=== PATIENT | female | born 1940 | race Caucasian/White ===

== ENCOUNTER 2022-05-08 21:49 | Inpatient (IN) | payer MEDICARE, OTHER ==
[~2022-05-08] VITALS: Ht 157.5 cm; Wt 82.6 kg
[2022-05-08 21:00] VITALS: BP 164/78
[2022-05-08] MEDS ORDERED: ESCI20TA PO (23:38)
[2022-05-08] MEDS ORDERED: EZET10TA15 PO (23:41)
[2022-05-08] MEDS ORDERED: BIMA2.5D5 EACHEYE (23:42)
[2022-05-08] MEDS ORDERED: ESOM40CA PO (23:43)
[2022-05-08] MEDS ORDERED: METO25TA6 PO (23:43)
[2022-05-08] MEDS ORDERED: DONE5TAB34 PO (23:44)
[2022-05-08] MEDS ORDERED: MELO-107 PO (23:45)
[2022-05-08] MEDS ORDERED: AMLO-212 PO (23:46)
[2022-05-08] MEDS ORDERED: BENA20TA9 PO (23:47)
[2022-05-08] MEDS ORDERED: SIMV-46 PO (23:47)
[2022-05-08] MEDS ORDERED: ERGO500040 PO ×2 (23:50→23:51)
[2022-05-09 04:00] VITALS: BP 128/56
--- NOTE | 2022-05-09 07:30 | NUR ---
REPORT GIVEN TO LANRE CHASE
[2022-05-09 08:00] VITALS: BP 131/60
[2022-05-09] MEDS: HYDROCODONE/APAP 10-325 MG TABLET PO PRN ×3 (09:38→21:08)
[2022-05-09 12:02] VITALS: BP 133/49
[2022-05-09] MEDS ORDERED: MAGNESIUM HYDROXIDE 30 ML LIQUID UDC PO PRN (14:45)
[2022-05-09] MEDS: SENNOSIDES 1 TABLET PO SCH ×2 (15:26→21:09)
[2022-05-09 16:21] VITALS: BP 115/65
[2022-05-09] MEDS: METOPROLOL TARTRATE 25 MG TABLET PO SCH (17:00)
[2022-05-09] MEDS: SIMVASTATIN 20 MG TABLET PO SCH (17:51)
[2022-05-09] MEDS ORDERED: BIMATOPROST 0.01% OPHT DROP 2.5 ML BOTTLE EACHEYE SCH (18:00)
[2022-05-09 20:00] VITALS: BP 121/55
[2022-05-09] MEDS: LATANOPROST OPHT DROP 2.5 ML BOTTLE OP SCH (21:00)
[2022-05-09] MEDS: DOCUSATE SODIUM 100 MG CAPSULE PO SCH (21:09)
[2022-05-10] VITALS: BP 119/67
[2022-05-10 04:00] VITALS: BP 122/66
[2022-05-10 05:43] LABS: HEMATOCRIT 34.7 % (31.2-41.9); MEAN CORPUSCULAR HEMOGLOBIN 27.7 uug (24.7-32.8); MEAN CORPUSCULAR VOLUME 83.4 fL (75.5-95.3); PLATELET COUNT (AUTO) 259 K/uL (179-408)
[2022-05-10 05:57] LABS: CREATININE 0.7 mg/dL (0.6-1.3); MAGNESIUM 2.1 mg/dL (1.8-2.4); PHOSPHOROUS 3.5 mg/dL (2.5-4.9); POTASSIUM 4.1 mmol/L (3.5-5.1)
[2022-05-10] MEDS: PANTOPRAZOLE SODIUM 40 MG TABLET.DR PO SCH (06:12)
--- NOTE | 2022-05-10 07:14 | NUR ---
Patient is AAOX4 , she came on the unit after having a hip fracture surgery. Dressing has been changed, no sign of respiratory observed, pain medication have been administered per patient request. Patient is stable we will continue to monitor patient for safety.
--- NOTE | 2022-05-10 07:14 | NUR ---
Patient is AAOX$
[2022-05-10 08:00] VITALS: BP 143/72
[2022-05-10] MEDS: DOCUSATE SODIUM 100 MG CAPSULE PO SCH ×2 (08:51→20:13)
[2022-05-10] MEDS: MELOXICAM 7.5 MG TABLET PO SCH (08:51)
[2022-05-10] MEDS: ESCITALOPRAM OXALATE 10 MG TABLET PO SCH (08:51)
[2022-05-10] MEDS: HYDROCODONE/APAP 10-325 MG TABLET PO PRN ×2 (08:52→18:45)
[2022-05-10] MEDS: DONEPEZIL 5 MG TABLET PO SCH (08:52)
[2022-05-10] MEDS: EZETIMIBE 10 MG TABLET PO SCH (08:52)
[2022-05-10] MEDS: METOPROLOL TARTRATE 25 MG TABLET PO SCH ×2 (08:53→17:07)
[2022-05-10] MEDS: AMLODIPINE 5 MG TABLET PO SCH (08:53)
[2022-05-10] MEDS: BENAZEPRIL HCL 20 MG TABLET PO SCH (08:53)
[2022-05-10] MEDS ORDERED: ESOMEPRAZOLE MAG TRIHYDRATE PO SCH (09:00)
[2022-05-10] MEDS ORDERED: Medication Not On Formulary EA (Escitalopram Oxalate (Lexapro) 1 TAB) PO SCH (09:00)
[2022-05-10] MEDS: MIRALAX 17 GM POWD.PACK PO SCH (13:05)
--- NOTE | 2022-05-10 13:05 | NUR ---
PATIENT C/O CONSTIPATED AND HAS NOT MOVED HER BOWELS FOR A FEW DAYS DR VILLA NOTIFIED WITH NEW ORDERS AND NOTED.PATIENT IS ALSO ON [place] AND [facility] ROUTINELY.
[2022-05-10] MEDS: ONDANSETRON ODT 4 MG TAB.RAPDIS SL PRN (14:20)
--- NOTE | 2022-05-10 14:20 | NUR ---
PATIENT C/O FEELS NAUSEOUS HAS NO ORDER FOR ZOFRAN DR VILLA NOTIFIED WITH ORDER TO START ZOFRA ODT NEEDED GIVEN AND HELPFUL
[2022-05-10] MEDS: SIMVASTATIN 20 MG TABLET PO SCH (17:06)
[2022-05-10 18:00] VITALS: BP 127/52
--- NOTE | 2022-05-10 18:47 | NUR ---
MEDICATED FOR C/O PAIN AND DISCOMFORTS X2 THIS SHIFT ORDERED AND HELPFUL MADE COMFORTABLE WILL CONTINUE TO OBSERVE.
[2022-05-10] MEDS: LATANOPROST OPHT DROP 2.5 ML BOTTLE OP SCH (20:13)
[2022-05-10] MEDS: SENNOSIDES 1 TABLET PO SCH (20:13)
[2022-05-10 20:23] VITALS: BP 125/59
[2022-05-11 05:19] VITALS: BP 107/54
[2022-05-11] MEDS: PANTOPRAZOLE SODIUM 40 MG TABLET.DR PO SCH (06:22)
[2022-05-11 07:44] VITALS: BP 128/52
[2022-05-11] MEDS: DOCUSATE SODIUM 100 MG CAPSULE PO SCH ×2 (08:35→20:22)
[2022-05-11] MEDS: DONEPEZIL 5 MG TABLET PO SCH (08:35)
[2022-05-11] MEDS: HYDROCODONE/APAP 10-325 MG TABLET PO PRN (08:35)
[2022-05-11] MEDS: ESCITALOPRAM OXALATE 10 MG TABLET PO SCH (08:35)
[2022-05-11] MEDS: METOPROLOL TARTRATE 25 MG TABLET PO SCH ×2 (08:35→17:35)
[2022-05-11] MEDS: MELOXICAM 7.5 MG TABLET PO SCH (08:36)
[2022-05-11] MEDS: EZETIMIBE 10 MG TABLET PO SCH (08:36)
[2022-05-11] MEDS: MIRALAX 17 GM POWD.PACK PO SCH (08:36)
[2022-05-11] MEDS: BENAZEPRIL HCL 20 MG TABLET PO SCH (08:37)
[2022-05-11] MEDS: AMLODIPINE 5 MG TABLET PO SCH (09:53)
--- NOTE | 2022-05-11 11:01 | NUR ---
INDIVIDUALIZED PLAN OF CARE
[2022-05-11] MEDS ORDERED: FLEET ENEMA 133 ML BOTTLE RC PRN (13:15)
--- NOTE | 2022-05-11 13:29 | NUR ---
0730-REC'D PATIENT IN BED, AWAKE, ALERT/ORIENTED. FARSI SPEAKING, PATIENT ABLE TO VERBALIZE HER NEEDS VIA A HOME APPLIANCE TECHNICIAN, PATIENT DENIES PAIN AT THIS TIME. OXYGEN VIA NC 2LPM, NO RESPIRATORY OR PHYSICAL DISTRESS NOTED. ORAL FLUIDS TAKEN WELL. RT HIP ORIF WITH CLEAN DD IN PLACE. NO S/S OF BLEEDING. CALL LIGHT AT REACH, ENCOURAGED TO PLEASE USE IT EVERY TIME HELP IS NEEDED WITH GOOD UNDERSTANDING. 0840-MEDICATED PRN WITH NORCO BASED ON HER PAIN LEVEL NEEDS/ ORDERED BY MD AND EFFECTIVE. OTHER SCHEDULED/DUE MEDICATION 100MG AND MIRALAX 17GM ALONG WITH OTHER AM MEDICATION ADMINISTERED ORDERED WITH NO ASE NOTED; VS STABLE, ORAL FLUIDS TAKEN WELL. 1300-PATIENT C/O OF UNABLE TO REMOVE HER BOWELS FOR SEVERAL DAYS AND HAVING A DIFFICULT TIME. OBTAINED ORDERS FROM Dr DAISY Mckeon FOR A FLEET ENEMA PRN AND ADMINISTERED, PROCEDURE EXPLAINED PRIOR, PRIVACY PROVIDED; PATIENT TOLERATED WELL WITH NO C/O DISCOMFORT/PAIN. 1330-PATIENT WITH LARGE BM AT THIS TIME, CARE PROVIDED AND REPOSITIONED FOR COMFORT.
[2022-05-11 15:46] VITALS: BP 116/44
[2022-05-11] MEDS: SIMVASTATIN 20 MG TABLET PO SCH (17:35)
--- NOTE | 2022-05-11 19:02 | NUR ---
Patient compliant with care/treatment, cooperative with nursing staff, eating and drinking well. Dressing to RT hip surgical site done as ordered. No SS of bleeding or infection noted. All safety precautions observed. Needs anticipated and met. Patient denies pain. Fleet enema administered as ordered with x2 large BM soft formed obtained at this time. Endorsed to incoming relieving RN appropriately.
[2022-05-11 20:00] VITALS: BP 120/47
[2022-05-11] MEDS: SENNOSIDES 1 TABLET PO SCH (20:22)
[2022-05-11] MEDS: LATANOPROST OPHT DROP 2.5 ML BOTTLE OP SCH (20:24)
[2022-05-12 04:36] VITALS: BP 113/52
[2022-05-12] MEDS: PANTOPRAZOLE SODIUM 40 MG TABLET.DR PO SCH (06:05)
--- NOTE | 2022-05-12 07:25 | NUR ---
Upon shift exchange rounds rec'd patient in bed, no respiratory distress noted, denies pain at this time. Offered oral fluids and taken well. Repositioned for comfort, safety measures in place, reminded and encouraged to use call light for help every time needed.
[2022-05-12 07:44] VITALS: BP 137/60
[2022-05-12] MEDS: HYDROCODONE/APAP 10-325 MG TABLET PO PRN ×2 (08:49→16:40)
[2022-05-12] MEDS: DOCUSATE SODIUM 100 MG CAPSULE PO SCH ×2 (08:49→21:12)
[2022-05-12] MEDS: ESCITALOPRAM OXALATE 10 MG TABLET PO SCH (08:49)
[2022-05-12] MEDS: EZETIMIBE 10 MG TABLET PO SCH (08:49)
[2022-05-12] MEDS: BENAZEPRIL HCL 20 MG TABLET PO SCH (08:50)
[2022-05-12] MEDS: DONEPEZIL 5 MG TABLET PO SCH (08:50)
[2022-05-12] MEDS: AMLODIPINE 5 MG TABLET PO SCH (08:50)
[2022-05-12] MEDS: MIRALAX 17 GM POWD.PACK PO SCH (08:51)
[2022-05-12] MEDS: METOPROLOL TARTRATE 25 MG TABLET PO SCH ×2 (08:51→16:41)
[2022-05-12 16:00] VITALS: BP 106/42
[2022-05-12] MEDS: SIMVASTATIN 20 MG TABLET PO SCH (17:02)
[2022-05-12] MEDS: GLUCERNA SHAKE 237 ML CAN PO SCH (17:02)
[2022-05-12 20:50] VITALS: BP 123/46
[2022-05-12] MEDS: SENNOSIDES 1 TABLET PO SCH (21:13)
[2022-05-12] MEDS: LATANOPROST OPHT DROP 2.5 ML BOTTLE OP SCH (21:13)
[2022-05-13 04:05] VITALS: BP 121/49
--- NOTE | 2022-05-13 05:53 | NUR ---
AAOx 3-4 forgetful at times. No acute distress noted. Right hip dressing clean and dry, trell in place. Medicated for pain as needed. Fall precautions maintained. Siderails up for safety. Will monitor patient. All due meds given without difficulty.
[2022-05-13] MEDS: PANTOPRAZOLE SODIUM 40 MG TABLET.DR PO SCH (06:11)
[2022-05-13 07:15] LABS: THYROID STIMULATING HORMONE 2.267 mIU/mL (0.358-3.740)
[2022-05-13 07:25] LABS: HEMATOCRIT 32.3 % (31.2-41.9); MEAN CORPUSCULAR HEMOGLOBIN 27.9 uug (24.7-32.8); MEAN CORPUSCULAR VOLUME 83.4 fL (75.5-95.3); PLATELET COUNT (AUTO) 294 K/uL (179-408)
[2022-05-13 07:39] LABS: BILIRUBIN,TOTAL 0.6 mg/dL (0.2-1.0); CREATININE 0.8 mg/dL (0.6-1.3); MAGNESIUM 1.9 mg/dL (1.8-2.4); PHOSPHOROUS 2.9 mg/dL (2.5-4.9); POTASSIUM 3.9 mmol/L (3.5-5.1); TOTAL PROTEIN, SERUM 6.6 g/dL (6.4-8.2)
[2022-05-13 08:00] VITALS: BP 123/49
[2022-05-13] MEDS: GLUCERNA SHAKE 237 ML CAN PO SCH ×3 (08:31→17:46)
[2022-05-13] MEDS: ESCITALOPRAM OXALATE 10 MG TABLET PO SCH (08:47)
[2022-05-13] MEDS: DOCUSATE SODIUM 100 MG CAPSULE PO SCH ×2 (08:48→21:12)
[2022-05-13] MEDS: DONEPEZIL 5 MG TABLET PO SCH (08:49)
[2022-05-13] MEDS: HYDROCODONE/APAP 10-325 MG TABLET PO PRN ×2 (08:51→23:43)
--- NOTE | 2022-05-13 09:00 | NUR ---
Received report from night cleaner. Pt is Farsi speaking only. Assisted to the commode for BM. Unable to collect urine for analysis at this time due to BM. Kimberlee CASPER, aware that urine needs to be collected.
[2022-05-13] MEDS: AMLODIPINE 5 MG TABLET PO SCH (09:01)
[2022-05-13] MEDS: MIRALAX 17 GM POWD.PACK PO SCH (09:02)
[2022-05-13] MEDS: BENAZEPRIL HCL 20 MG TABLET PO SCH (09:03)
--- NOTE | 2022-05-13 11:29 | NUR ---
INTERDISCIPLINARY TEAM CONFERENCE
[2022-05-13] MEDS: METOPROLOL TARTRATE 25 MG TABLET PO SCH (11:31)
[2022-05-13] MEDS: NUTRISOURCE FIBER 4 GM PACKET PO SCH (12:00)
--- NOTE | 2022-05-13 12:33 | NUR ---
Report given to LANRE Zuniga. Pt in bed, on bedpan. No s/s of pain noted. Bed in lowest position, bed alarm on, call light within reach.
[2022-05-13 15:04] LABS: *BILIRUBIN,URIN NEGATIVE (NEGATIVE); *BLOOD, URINE TRACE (NEGATIVE); *CLARITY,URINE CLEAR (CLEAR); *COLOR,URINE YELLOW (YELLOW); *KETONES,URINE NEGATIVE (NEGATIVE); LEUKOCYTE ESTERASE ,URINE 1+ (NEGATIVE); NITRITE, URINE NEGATIVE (NEGATIVE); PH,URINE 5.5 (5.0-8.0); UGLUCOSE NEGATIVE (NEGATIVE)
[2022-05-13 15:27] LABS: BACTERIA,URINE FEW /HPF (NONE SEEN); SQUAMOUS EPITHELIAL CELL,UR MODERATE /HPF (NONE SEEN)
[2022-05-13 16:27] VITALS: BP 104/50
[2022-05-13 20:42] VITALS: BP 120/57
[2022-05-13] MEDS: SENNOSIDES 1 TABLET PO SCH (21:13)
[2022-05-13] MEDS: LATANOPROST OPHT DROP 2.5 ML BOTTLE OP SCH (21:14)
[2022-05-13] MEDS: CEphaleXIN 500 MG CAPSULE PO SCH (22:31)
[2022-05-14 04:00] VITALS: BP 141/57
[2022-05-14] MEDS: CEphaleXIN 500 MG CAPSULE PO SCH ×3 (06:03→21:33)
[2022-05-14] MEDS: PANTOPRAZOLE SODIUM 40 MG TABLET.DR PO SCH (06:04)
[2022-05-14] MEDS: DOCUSATE SODIUM 100 MG CAPSULE PO SCH ×2 (08:16→21:29)
[2022-05-14] MEDS: METOPROLOL TARTRATE 25 MG TABLET PO SCH ×2 (08:16→17:33)
[2022-05-14] MEDS: ESCITALOPRAM OXALATE 10 MG TABLET PO SCH (08:17)
[2022-05-14] MEDS: GLUCERNA SHAKE 237 ML CAN PO SCH ×3 (08:17→17:34)
[2022-05-14] MEDS: DONEPEZIL 5 MG TABLET PO SCH (08:17)
[2022-05-14] MEDS: AMLODIPINE 5 MG TABLET PO SCH (08:18)
[2022-05-14] MEDS: MIRALAX 17 GM POWD.PACK PO SCH (08:18)
[2022-05-14] MEDS: BENAZEPRIL HCL 20 MG TABLET PO SCH (08:18)
[2022-05-14] MEDS: NUTRISOURCE FIBER 4 GM PACKET PO SCH (08:19)
[2022-05-14] MEDS: HYDROCODONE/APAP 10-325 MG TABLET PO PRN ×2 (08:59→21:29)
[2022-05-14 12:56] VITALS: BP 124/60
[2022-05-14] MEDS: ONDANSETRON ODT 4 MG TAB.RAPDIS SL PRN (13:34)
[2022-05-14 16:00] VITALS: BP 112/47
[2022-05-14] MEDS: LATANOPROST OPHT DROP 2.5 ML BOTTLE OP SCH (21:28)
[2022-05-14] MEDS: SENNOSIDES 1 TABLET PO SCH (21:29)
[2022-05-15] MEDS: CEphaleXIN 500 MG CAPSULE PO SCH ×3 (05:25→21:19)
[2022-05-15] MEDS: PANTOPRAZOLE SODIUM 40 MG TABLET.DR PO SCH (06:25)
[2022-05-15 07:36] VITALS: BP 129/56
[2022-05-15] MEDS: GLUCERNA SHAKE 237 ML CAN PO SCH ×3 (08:17→16:18)
[2022-05-15] MEDS: HYDROCODONE/APAP 5-325MG TABLET PO SCH ×2 (08:18→09:56)
[2022-05-15] MEDS: DONEPEZIL 5 MG TABLET PO SCH (08:19)
[2022-05-15] MEDS: DOCUSATE SODIUM 100 MG CAPSULE PO SCH ×2 (08:19→20:48)
[2022-05-15] MEDS: ESCITALOPRAM OXALATE 10 MG TABLET PO SCH (08:20)
[2022-05-15] MEDS: BENAZEPRIL HCL 20 MG TABLET PO SCH (08:21)
[2022-05-15] MEDS: METOPROLOL TARTRATE 25 MG TABLET PO SCH ×2 (08:21→16:19)
[2022-05-15] MEDS: MIRALAX 17 GM POWD.PACK PO SCH (08:21)
[2022-05-15] MEDS: AMLODIPINE 5 MG TABLET PO SCH (08:21)
[2022-05-15] MEDS: NUTRISOURCE FIBER 4 GM PACKET PO SCH (09:02)
--- NOTE | 2022-05-15 11:17 | NUR ---
Reassessment for norco was done at 0930.
[2022-05-15] MEDS: HYDROCODONE/APAP 10-325 MG TABLET PO PRN (16:23)
[2022-05-15] MEDS: LATANOPROST OPHT DROP 2.5 ML BOTTLE OP SCH (20:48)
[2022-05-15] MEDS: SENNOSIDES 1 TABLET PO SCH (20:48)
--- NOTE | 2022-05-15 22:00 | NUR ---
1920- The patient is aox2 and has no complains of distress. The patient is on 2 liters nasala cannula. The patient has no IV access. The patient has trell on her right side hip that are intact, dry and open to air. The patient has no complains of pain. Call light within reach, bed at lowest position, bed alarm on, wheels are lock. Will continue to monitor throughout the shift. 2200- The patient request for an extra blanket. Item is given to the patient. The patient has no complains of pain or signs of distress. Will continue to monitor throughout the shift. 0100- The patient is asleep and resting comfortably. The patient has no complains of pain. Will continue to monitor throughout the shift.
--- NOTE | 2022-05-16 01:27 | NUR ---
Patient remains clinically stable - no concerns expressed, will continue to assess, plan, and implement care accordingly.
[2022-05-16 04:23] VITALS: BP 114/68
[2022-05-16] MEDS: CEphaleXIN 500 MG CAPSULE PO SCH ×4 (05:57→22:00)
[2022-05-16] MEDS: PANTOPRAZOLE SODIUM 40 MG TABLET.DR PO SCH (06:01)
[2022-05-16 07:48] VITALS: BP 142/49
[2022-05-16] MEDS: GLUCERNA SHAKE 237 ML CAN PO SCH ×3 (08:11→17:16)
[2022-05-16] MEDS: DOCUSATE SODIUM 100 MG CAPSULE PO SCH ×3 (08:36→21:51)
[2022-05-16] MEDS: DONEPEZIL 5 MG TABLET PO SCH (08:36)
[2022-05-16] MEDS: MIRALAX 17 GM POWD.PACK PO SCH (08:37)
[2022-05-16] MEDS: HYDROCODONE/APAP 5-325MG TABLET PO SCH (08:37)
[2022-05-16] MEDS: ESCITALOPRAM OXALATE 10 MG TABLET PO SCH (08:37)
[2022-05-16] MEDS: METOPROLOL TARTRATE 25 MG TABLET PO SCH ×2 (08:38→17:00)
[2022-05-16] MEDS: BENAZEPRIL HCL 20 MG TABLET PO SCH (08:38)
[2022-05-16] MEDS: AMLODIPINE 5 MG TABLET PO SCH (08:38)
[2022-05-16] MEDS: NUTRISOURCE FIBER 4 GM PACKET PO SCH (08:39)
[2022-05-16 16:45] VITALS: BP 128/41
--- NOTE | 2022-05-16 17:16 | NUR ---
RN HELD B/P MEDICATIONS HR 55, B/P 123/52.
--- NOTE | 2022-05-16 19:29 | NUR ---
RECEIVED REPORT FROM JANN HALL SHIFT RN, & JANN FUCHS SHIFT RN. PATIENT IS ALERT AND ORIENTED X3 AND SPEAKS TAJIK, WITH LIMITED KINYARWANDA. PATIENT ABLE TO TOLERATE PO MEDICATIONS AND DIET, EATING MAINLY FOOD BROUGHT FROM HOME. PATIENT VOIDS ADEQUATELY USING DIAPER & COMMODE. PATIENT PARTICIPATES WITH PHYSICAL THERAPY PER SCHEDULE. PATIENT HAD SOME PAIN NOTED, BUT SCHEDULED NORCO WAS ABLE TO REDUCE PAIN LEVEL. NO ACUTE DISTRESS NOTED. FALL PRECAUTION IN PLACE, INCLUDING BED IN LOW POSITION & BED ALARM ON. HOURLY ROUNDING COMPLETED. ENDORSED CARE TO LANRE WARD, FOR CONTINUATION OF CARE.
--- NOTE | 2022-05-16 19:30 | NUR ---
NIGHT NURSE REPORT RECEIVED FOLLOWS: - son in the room with patient at the time of this report: 1) BREATHING: (a) Patient received, AO x 3-4 no sign of distress, SOB, or hypoxia observed. (b) Patient awake watching tv, lying comfortably in bed. 2) PAIN: Prescribed: [place] 10/325 Q6 for pain 2) SAFETY: - (a) Bed alarm activated, surrounding areas free of clutter. (c) No clutter around the bed area -to reduce risk of fall. 3) INFECTION CONTROL: Patient no iv accesses. 4) COMMUNICATION:- Speaks doesn't speak Norwegian - however, using sign language a little Norwegian to express own needs. 5) TOILETING: Uses commode with assist of one. 6) HYGIENE: Patient needs assistance with meeting hygiene needs. 8) FEEDING/NUTRITION: Needs maximum assistance with ADLs due to recent hip surgery. 9) MOBILITY: Limited mobility due to condition - ORIF. 10) DRESSING:Patient needs assistance with dressing - patient in hospital gown - clean and dry. 11) COMFORT: Patient lying in bed watching TV and seem comfortable. 12) SKIN/RESTRAINTS: Skin intact - no restraints. PLAN: (a) Maintain safety - patient at risk of falls - bed alarm activated. (b) Will continue monitoring and assisting patient accordingly with ADLs. (c) Continue with rehab PT/OT for ADL (d) Management of surgical wound (e) DVT prophylaxis (f) Discontinued Meloxican because of possible bone healing delays.
[2022-05-16 20:52] VITALS: BP 137/65
--- NOTE | 2022-05-16 21:25 | NUR ---
Night medication administered as prescribed, however, refused ATB.
[2022-05-16] MEDS: SENNOSIDES 1 TABLET PO SCH (21:51)
[2022-05-16] MEDS: ACIDOPHILUS/BULGARICUS CHEW TAB PO SCH (21:52)
[2022-05-16] MEDS: LATANOPROST OPHT DROP 2.5 ML BOTTLE OP SCH (21:55)
--- NOTE | 2022-05-16 23:26 | NUR ---
Checked on patient - watching TV and remain clinically stable, no sign of SOB, pain, or distress observed.
--- NOTE | 2022-05-17 01:28 | NUR ---
Patient remains clinically stable - no concerns expressed, will continue to assess, plan, and implement care accordingly.
--- NOTE | 2022-05-17 03:29 | NUR ---
Patient requested water - and bathroom assistance, a request that was granted. Patient went back to sleep, with no concerns.
[2022-05-17 04:12] VITALS: BP 126/51
--- NOTE | 2022-05-17 05:25 | NUR ---
Checked patient - no change in condition at the time of this report.
[2022-05-17] MEDS: PANTOPRAZOLE SODIUM 40 MG TABLET.DR PO SCH (05:47)
[2022-05-17] MEDS: CEphaleXIN 500 MG CAPSULE PO SCH ×2 (05:48→13:59)
--- NOTE | 2022-05-17 06:36 | NUR ---
1) Washed - bed bath, bed linen and gown changed. 2) Morning med administered as prescribed, however, she refused oral ATB, because they are too big. 3) She seem to generally not like taking meds. Therefore, unable to administer Zofran as its oral and she is a rehab patient with no iv access. 4) No complaints for the rest of the shift, remained in bed at the time of this report. 5) Patient less confused during the night compared to the previous two nights. 6) Will endorse care to day staff, who will continue to assess, plan, implement and evaluate care accordingly.
[2022-05-17 07:52] VITALS: BP 125/48
[2022-05-17] MEDS: HYDROCODONE/APAP 5-325MG TABLET PO SCH (08:32)
[2022-05-17] MEDS: ACIDOPHILUS/BULGARICUS CHEW TAB PO SCH ×2 (08:32→20:52)
[2022-05-17] MEDS: DONEPEZIL 5 MG TABLET PO SCH (08:32)
[2022-05-17] MEDS: METOPROLOL TARTRATE 25 MG TABLET PO SCH ×2 (08:32→16:34)
[2022-05-17] MEDS: ESCITALOPRAM OXALATE 10 MG TABLET PO SCH (08:32)
[2022-05-17] MEDS: FERROUS SULFATE 325 MG TABEC PO SCH (08:32)
[2022-05-17] MEDS: AMLODIPINE 5 MG TABLET PO SCH (08:32)
[2022-05-17] MEDS: BENAZEPRIL HCL 20 MG TABLET PO SCH (08:32)
[2022-05-17] MEDS: NUTRISOURCE FIBER 4 GM PACKET PO SCH ×2 (08:33→16:34)
[2022-05-17] MEDS: GLUCERNA SHAKE 237 ML CAN PO SCH ×3 (08:33→16:34)
[2022-05-17] MEDS: DOCUSATE SODIUM 100 MG CAPSULE PO SCH ×3 (08:33→20:56)
[2022-05-17] MEDS: MIRALAX 17 GM POWD.PACK PO SCH (08:33)
[2022-05-17 16:42] VITALS: BP 125/46
[2022-05-17] MEDS: SENNOSIDES 1 TABLET PO SCH ×2 (20:52→20:57)
[2022-05-17] MEDS: LATANOPROST OPHT DROP 2.5 ML BOTTLE OP SCH (20:52)
--- NOTE | 2022-05-17 20:58 | NUR ---
Yudy held, family reported had loose BM x 1 today.
[2022-05-17 22:18] VITALS: BP 123/48
[2022-05-18] MEDS: CEphaleXIN 500 MG CAPSULE PO SCH ×4 (00:02→21:35)
[2022-05-18 04:20] VITALS: BP 106/55
[2022-05-18] MEDS: PANTOPRAZOLE SODIUM 40 MG TABLET.DR PO SCH (06:23)
[2022-05-18 08:22] VITALS: BP 140/52
[2022-05-18] MEDS: FERROUS SULFATE 325 MG TABEC PO SCH (08:49)
[2022-05-18] MEDS: DOCUSATE SODIUM 100 MG CAPSULE PO SCH ×2 (08:49→20:42)
[2022-05-18] MEDS: ACIDOPHILUS/BULGARICUS CHEW TAB PO SCH ×2 (08:49→20:42)
[2022-05-18] MEDS: BENAZEPRIL HCL 20 MG TABLET PO SCH (08:49)
[2022-05-18] MEDS: AMLODIPINE 5 MG TABLET PO SCH (08:49)
[2022-05-18] MEDS: MIRALAX 17 GM POWD.PACK PO SCH (08:50)
[2022-05-18] MEDS: DONEPEZIL 5 MG TABLET PO SCH (08:50)
[2022-05-18] MEDS: GLUCERNA SHAKE 237 ML CAN PO SCH ×3 (08:50→17:18)
[2022-05-18] MEDS: METOPROLOL TARTRATE 25 MG TABLET PO SCH ×2 (08:50→17:18)
[2022-05-18] MEDS: ESCITALOPRAM OXALATE 10 MG TABLET PO SCH (08:50)
[2022-05-18] MEDS: NUTRISOURCE FIBER 4 GM PACKET PO SCH ×2 (08:51→17:19)
[2022-05-18] MEDS: HYDROCODONE/APAP 10-325 MG TABLET PO PRN (14:43)
--- NOTE | 2022-05-18 16:51 | NUR ---
Patient refused her antibiotic dose, stated she does not want it, risks and benefits explained, daughter was at bedside, verbalized understanding of it, still refused. no acute distress note.
[2022-05-18 16:56] VITALS: BP 121/48
--- NOTE | 2022-05-18 18:27 | NUR ---
no new events noted during shift
[2022-05-18] MEDS: SENNOSIDES 1 TABLET PO SCH (20:43)
[2022-05-18] MEDS: LATANOPROST OPHT DROP 2.5 ML BOTTLE OP SCH (20:43)
[2022-05-18 23:10] VITALS: BP 141/56
--- NOTE | 2022-05-19 05:31 | NUR ---
no events noted during shift, alert, oriented x4, farsi speaking, kept comfortable, needs met timely.
[2022-05-19] MEDS: PANTOPRAZOLE SODIUM 40 MG TABLET.DR PO SCH (06:12)
[2022-05-19 06:13] VITALS: BP 139/55
--- NOTE | 2022-05-19 07:30 | NUR ---
Received report from LANRE RINCON. Pt stable, lying in bed awake, Farsi speaking only. No s/s of distress noted, all safety measures in place.
[2022-05-19 08:01] VITALS: BP 138/40
[2022-05-19] MEDS: GLUCERNA SHAKE 237 ML CAN PO SCH ×3 (08:33→17:59)
[2022-05-19] MEDS: ACIDOPHILUS/BULGARICUS CHEW TAB PO SCH ×2 (08:40→20:51)
[2022-05-19] MEDS: METOPROLOL TARTRATE 25 MG TABLET PO SCH ×2 (08:41→17:00)
[2022-05-19] MEDS: FERROUS SULFATE 325 MG TABEC PO SCH (08:43)
[2022-05-19] MEDS: HYDROCODONE/APAP 10-325 MG TABLET PO PRN (08:43)
[2022-05-19] MEDS: AMLODIPINE 5 MG TABLET PO SCH (08:43)
[2022-05-19] MEDS: DONEPEZIL 5 MG TABLET PO SCH (08:44)
[2022-05-19] MEDS: ESCITALOPRAM OXALATE 10 MG TABLET PO SCH (08:44)
[2022-05-19] MEDS: BENAZEPRIL HCL 20 MG TABLET PO SCH (08:44)
[2022-05-19] MEDS: NUTRISOURCE FIBER 4 GM PACKET PO SCH ×2 (08:45→17:03)
[2022-05-19] MEDS: MIRALAX 17 GM POWD.PACK PO SCH (08:45)
[2022-05-19] MEDS: DOCUSATE SODIUM 100 MG CAPSULE PO SCH ×2 (08:45→20:52)
[2022-05-19 15:50] VITALS: BP 103/55
--- NOTE | 2022-05-19 19:39 | NUR ---
Pt endorsed to LANRE Tolliver, curb machine operator nurse. Pt stable, lying in bed, no s/s of distress noted, all safety measures in place.
[2022-05-19 20:00] VITALS: BP 140/60
[2022-05-19] MEDS: SENNOSIDES 1 TABLET PO SCH (20:52)
[2022-05-19] MEDS: LATANOPROST OPHT DROP 2.5 ML BOTTLE OP SCH (20:52)
--- NOTE | 2022-05-20 04:29 | NUR ---
Awake alert and oriented x 2-3 Forgetful at times. Tolerated po meds well. All needs attended. Fall precautions maintained. Kept comfortable. Incontinent of bowel and bladder. Kept clean and dry. No BM noted this shift. VSS. Denies any pain nor any discomfort. Fall precautions maintained. Will monitor patient. Right hip trell intact and DIRECTOR TALENT MANAGEMENT.
[2022-05-20] MEDS: PANTOPRAZOLE SODIUM 40 MG TABLET.DR PO SCH (06:03)
[2022-05-20 06:39] VITALS: BP 104/56
[2022-05-20 08:09] VITALS: BP 154/52
[2022-05-20] MEDS: GLUCERNA SHAKE 237 ML CAN PO SCH ×3 (08:22→17:39)
[2022-05-20] MEDS: ESCITALOPRAM OXALATE 10 MG TABLET PO SCH (09:01)
[2022-05-20] MEDS: BENAZEPRIL HCL 20 MG TABLET PO SCH (09:01)
[2022-05-20] MEDS: ACIDOPHILUS/BULGARICUS CHEW TAB PO SCH ×2 (09:01→20:55)
[2022-05-20] MEDS: FERROUS SULFATE 325 MG TABEC PO SCH (09:01)
[2022-05-20] MEDS: DOCUSATE SODIUM 100 MG CAPSULE PO SCH ×2 (09:01→20:55)
[2022-05-20] MEDS: DONEPEZIL 5 MG TABLET PO SCH (09:01)
[2022-05-20] MEDS: METOPROLOL TARTRATE 25 MG TABLET PO SCH ×3 (09:01→17:39)
[2022-05-20] MEDS: AMLODIPINE 5 MG TABLET PO SCH (09:02)
[2022-05-20] MEDS: MIRALAX 17 GM POWD.PACK PO SCH (09:02)
[2022-05-20] MEDS: NUTRISOURCE FIBER 4 GM PACKET PO SCH ×2 (09:02→17:40)
[2022-05-20] MEDS: HYDROCODONE/APAP 10-325 MG TABLET PO PRN (09:09)
[2022-05-20 15:49] VITALS: BP 106/40
--- NOTE | 2022-05-20 15:53 | NUR ---
INTERDISCIPLINARY TEAM CONFERENCE
--- NOTE | 2022-05-20 18:59 | NUR ---
0730-REC'D PATIENT IN BED, ON R/A WITH NO APPARENT RESPIRATORY DISTRESS NOTED. PATIENT ALERT AND ORIENTED, FARSI SPEAKING. DENIES PAIN AT THIS TIMED. RT HIP S/P ORIF WITH SURGICAL SITE INTACT, NO S/S OF BLEEDING OR INFECTION NOTED. SAFETY MEASURES AND CALL LIGHT AT REACH. 0900-SCHEDULED/DUE MEDICATION ADMINISTERED WITH NO A/R NOTED, ORAL FLUIDS TAKEN WELL, PATIENT DENIES ANY DISCOMFORT. 1144AM-PATIENT IN ROOM BY REHAB STAFF, PER REHAB STAFF PATIENT DURING THERAPY PATIENT SUDDENLY GOT DIZZY AND PALE AND WAS BROUGHT BACK TO HER ROOM, ARRIVED TO ASSESS PATIENT WITH FOLLOWING VS: BP11/54, P50, OXYGEN 93% ON ROOM AIR, PATIENT STATED SHE FEELS WELL NOW, BUT SHE DID FELT DIZZY DURING THERAPY. NO OTHER C/O DISCOMFORT AT THIS TIME. 1244-VSS AND FOLLOWS: BP120/56, P62, T97.5, R20, OXYGEN 95% ON R/A, PATIENT DENIES ANY DISCOMFORT. MEDICATED PATIENT PRN FOR PAIN DURING SHIFT ORDERED BY MD AND EFFECTIVE. ASSIST WITH ADLS THROUGH OUT THE DAY. INCONTINENT AND REQUIRES OF ONE PERSON ASSIST WITH PERSONAL CARE/HYGIENE, CARE PROVIDED AT ROUTINE INTERVALS AND NEEDED. NEEDS ANTICIPATED AND MET. ROUTINE ROUNDS AND FREQUENT VISUAL CHECKS DONE DURING SHIFT AND CALL LIGHTS ANSWERED PROMPTLY. SCHEDULED AND PRN MEDICATIONS ADMINISTERED ORDERED AND NEEDED BY PATIENT.
[2022-05-20 20:00] VITALS: BP 123/52
[2022-05-20] MEDS: LATANOPROST OPHT DROP 2.5 ML BOTTLE OP SCH (20:55)
[2022-05-20] MEDS: SENNOSIDES 1 TABLET PO SCH (20:56)
[2022-05-21 04:11] VITALS: BP 120/58
--- NOTE | 2022-05-21 04:56 | NUR ---
Quiet night. All needs attended. VSS. No acute distress noted. Will monitor patient. Incontinent of urine x2. Kept clean and dry. No complaints presented during shift. Slept well.
[2022-05-21] MEDS: PANTOPRAZOLE SODIUM 40 MG TABLET.DR PO SCH (06:10)
[2022-05-21 07:47] VITALS: BP 118/74
[2022-05-21] MEDS: GLUCERNA SHAKE 237 ML CAN PO SCH ×3 (09:18→16:44)
[2022-05-21] MEDS: DONEPEZIL 5 MG TABLET PO SCH (09:18)
[2022-05-21] MEDS: ACIDOPHILUS/BULGARICUS CHEW TAB PO SCH ×2 (09:18→20:27)
[2022-05-21] MEDS: DOCUSATE SODIUM 100 MG CAPSULE PO SCH ×2 (09:19→20:27)
[2022-05-21] MEDS: AMLODIPINE 5 MG TABLET PO SCH (09:19)
[2022-05-21] MEDS: ESCITALOPRAM OXALATE 10 MG TABLET PO SCH (09:19)
[2022-05-21] MEDS: FERROUS SULFATE 325 MG TABEC PO SCH (09:19)
[2022-05-21] MEDS: BENAZEPRIL HCL 20 MG TABLET PO SCH (09:20)
[2022-05-21] MEDS: MIRALAX 17 GM POWD.PACK PO SCH (09:20)
[2022-05-21] MEDS: NUTRISOURCE FIBER 4 GM PACKET PO SCH ×2 (09:21→16:44)
[2022-05-21 16:35] VITALS: BP 113/49
[2022-05-21] MEDS: METOPROLOL TARTRATE 25 MG TABLET PO SCH (16:44)
[2022-05-21] MEDS: HYDROCODONE/APAP 10-325 MG TABLET PO PRN (16:46)
[2022-05-21 20:00] VITALS: BP 99/52
[2022-05-21] MEDS: LATANOPROST OPHT DROP 2.5 ML BOTTLE OP SCH (20:27)
[2022-05-21] MEDS: SENNOSIDES 1 TABLET PO SCH (20:27)
[2022-05-22 04:00] VITALS: BP 100/47
--- NOTE | 2022-05-22 04:03 | NUR ---
Awake alert and oriented x2-3 Forgetful at times. All due meds given without difficulty. No distress noted. Continent/incontinent at timed. Kept clean and dry Fall precautions maintained. VSS. Siderails up for safety.
[2022-05-22] MEDS: PANTOPRAZOLE SODIUM 40 MG TABLET.DR PO SCH (06:12)
[2022-05-22 07:56] VITALS: BP 111/46
[2022-05-22] MEDS: ESCITALOPRAM OXALATE 10 MG TABLET PO SCH (08:21)
[2022-05-22] MEDS: ACIDOPHILUS/BULGARICUS CHEW TAB PO SCH ×2 (08:21→21:31)
[2022-05-22] MEDS: FERROUS SULFATE 325 MG TABEC PO SCH (08:21)
[2022-05-22] MEDS: DONEPEZIL 5 MG TABLET PO SCH (08:21)
[2022-05-22] MEDS: HYDROCODONE/APAP 10-325 MG TABLET PO PRN (08:22)
[2022-05-22] MEDS: AMLODIPINE 5 MG TABLET PO SCH ×2 (08:22→08:26)
[2022-05-22] MEDS: DOCUSATE SODIUM 100 MG CAPSULE PO SCH ×2 (08:22→21:31)
[2022-05-22] MEDS: METOPROLOL TARTRATE 25 MG TABLET PO SCH ×2 (08:23→08:25)
[2022-05-22] MEDS: MIRALAX 17 GM POWD.PACK PO SCH (08:23)
[2022-05-22] MEDS: BENAZEPRIL HCL 20 MG TABLET PO SCH ×2 (08:24→08:26)
[2022-05-22] MEDS: GLUCERNA SHAKE 237 ML CAN PO SCH ×2 (08:25→17:18)
[2022-05-22] MEDS: NUTRISOURCE FIBER 4 GM PACKET PO SCH ×2 (09:06→17:19)
[2022-05-22 16:13] VITALS: BP 127/49
--- NOTE | 2022-05-22 18:15 | NUR ---
Patient alert and oriented, Farsi speaking, communicates via shopping centre manager. Patient with good appetite, eats food mainly brought from home. Oral fluids taken well. Continues under rehab for PT/OT skilled services. Patient actively able to participate in therapy. Medicated PRN for pain as ordered by MD and based on her pain level needs and effective. Patient does require of one person assist with her personal care/hygiene/bathing/dressing/transfers and bed mobility. Assist as needed, routine rounds and frequent visual checks done. All needs anticipated and met. No DIEGO or LOC noted during shift.
[2022-05-22 20:00] VITALS: BP_SYST 135; BP_SYST 142; BP_DIAS 54; BP_DIAS 62
[2022-05-22] MEDS: SENNOSIDES 1 TABLET PO SCH (21:32)
[2022-05-22] MEDS: LATANOPROST OPHT DROP 2.5 ML BOTTLE OP SCH (21:34)
[2022-05-23 04:00] VITALS: BP 124/48
[2022-05-23 07:58] VITALS: BP 154/64
[2022-05-23] MEDS: PANTOPRAZOLE SODIUM 40 MG TABLET.DR PO SCH (07:59)
[2022-05-23] MEDS: ESCITALOPRAM OXALATE 10 MG TABLET PO SCH (09:21)
[2022-05-23] MEDS: ACIDOPHILUS/BULGARICUS CHEW TAB PO SCH ×2 (09:21→21:04)
[2022-05-23] MEDS: DOCUSATE SODIUM 100 MG CAPSULE PO SCH ×2 (09:21→21:04)
[2022-05-23] MEDS: DONEPEZIL 5 MG TABLET PO SCH (09:21)
[2022-05-23] MEDS: AMLODIPINE 5 MG TABLET PO SCH (09:21)
[2022-05-23] MEDS: FERROUS SULFATE 325 MG TABEC PO SCH (09:21)
[2022-05-23] MEDS: METOPROLOL TARTRATE 25 MG TABLET PO SCH ×2 (09:22→17:49)
[2022-05-23] MEDS: NUTRISOURCE FIBER 4 GM PACKET PO SCH ×2 (09:22→17:49)
[2022-05-23] MEDS: MIRALAX 17 GM POWD.PACK PO SCH (09:22)
[2022-05-23] MEDS: BENAZEPRIL HCL 20 MG TABLET PO SCH (09:23)
[2022-05-23] MEDS: GLUCERNA SHAKE 237 ML CAN PO SCH ×2 (09:23→17:49)
[2022-05-23 16:26] VITALS: BP 151/50
--- NOTE | 2022-05-23 20:00 | NUR ---
NSG: Received patient lying in her bed. patient is Awake alert and oriented x2-3 Forgetful at times. All HS po meds given without difficulty. No distress noted. Continent/incontinent at timed. Kept clean and dry Fall precautions maintained. VSS. Side rails up for safety. call light w/in reach.
[2022-05-23 20:30] VITALS: BP 134/71
[2022-05-23] MEDS: LATANOPROST OPHT DROP 2.5 ML BOTTLE OP SCH (21:04)
[2022-05-23] MEDS: SENNOSIDES 1 TABLET PO SCH (21:04)
--- NOTE | 2022-05-24 03:58 | NUR ---
NSG: Remain calm and cooperative. pt is alert, oriented x4, farsi speaking, kept comfortable, needs met timely. no /c/o pain or discomfort at this time. call light w/in reach.
[2022-05-24 04:02] VITALS: BP 150/60
[2022-05-24] MEDS: PANTOPRAZOLE SODIUM 40 MG TABLET.DR PO SCH (06:02)
[2022-05-24 07:51] VITALS: BP 153/54
[2022-05-24] MEDS: METOPROLOL TARTRATE 25 MG TABLET PO SCH ×2 (08:40→17:32)
[2022-05-24] MEDS: DONEPEZIL 5 MG TABLET PO SCH (08:40)
[2022-05-24] MEDS: DOCUSATE SODIUM 100 MG CAPSULE PO SCH ×2 (08:40→20:32)
[2022-05-24] MEDS: ESCITALOPRAM OXALATE 10 MG TABLET PO SCH (08:40)
[2022-05-24] MEDS: FERROUS SULFATE 325 MG TABEC PO SCH (08:40)
[2022-05-24] MEDS: ACIDOPHILUS/BULGARICUS CHEW TAB PO SCH ×2 (08:43→20:32)
[2022-05-24] MEDS: GLUCERNA SHAKE 237 ML CAN PO SCH ×2 (08:43→17:32)
[2022-05-24] MEDS: MIRALAX 17 GM POWD.PACK PO SCH (08:43)
[2022-05-24] MEDS: BENAZEPRIL HCL 20 MG TABLET PO SCH (08:44)
[2022-05-24] MEDS: NUTRISOURCE FIBER 4 GM PACKET PO SCH ×2 (08:45→17:32)
[2022-05-24] MEDS: AMLODIPINE 5 MG TABLET PO SCH (08:45)
[2022-05-24 16:45] VITALS: BP 133/52
[2022-05-24] MEDS: SENNOSIDES 1 TABLET PO SCH (20:32)
[2022-05-24] MEDS: LATANOPROST OPHT DROP 2.5 ML BOTTLE OP SCH (20:32)
[2022-05-24 20:33] VITALS: BP 110/42
[2022-05-25 04:02] VITALS: BP 145/59
[2022-05-25] MEDS: PANTOPRAZOLE SODIUM 40 MG TABLET.DR PO SCH (06:04)
[2022-05-25 07:44] VITALS: BP 131/50
--- NOTE | 2022-05-25 08:00 | NUR ---
NSG: Received patient lying in her bed. patient is Awake alert and oriented x2-3 Forgetful at times. All am po meds given without difficulty. No distress noted. Continent/incontinent at timed. Kept clean and dry Fall precautions maintained. VSS. Side rails up for safety. call light w/in reach
[2022-05-25] MEDS: DOCUSATE SODIUM 100 MG CAPSULE PO SCH (09:21)
[2022-05-25] MEDS: ACIDOPHILUS/BULGARICUS CHEW TAB PO SCH (09:21)
[2022-05-25] MEDS: DONEPEZIL 5 MG TABLET PO SCH (09:21)
[2022-05-25] MEDS: ESCITALOPRAM OXALATE 10 MG TABLET PO SCH (09:22)
[2022-05-25] MEDS: METOPROLOL TARTRATE 25 MG TABLET PO SCH ×2 (09:22→17:01)
[2022-05-25] MEDS: AMLODIPINE 5 MG TABLET PO SCH (09:22)
[2022-05-25] MEDS: FERROUS SULFATE 325 MG TABEC PO SCH (09:23)
[2022-05-25] MEDS: BENAZEPRIL HCL 20 MG TABLET PO SCH (09:23)
[2022-05-25] MEDS: MIRALAX 17 GM POWD.PACK PO SCH (09:24)
[2022-05-25] MEDS: NUTRISOURCE FIBER 4 GM PACKET PO SCH ×2 (09:32→17:01)
[2022-05-25] MEDS: GLUCERNA SHAKE 237 ML CAN PO SCH ×2 (09:33→17:01)
[2022-05-25 16:28] VITALS: BP 128/53
[2022-05-25 17:01] VITALS: BP 128/53
--- NOTE | 2022-05-25 17:21 | NUR ---
NSG: PATIENT DISCHARGED TO HOME [facility]IA [facility] IN STABLE CONDITION. PATIENT IS ALERT AND ORIENTED X3, AMBULATE WITH FWW WITH ASSIST. ALL DISCHARGE INSTRUCTION GIVEN TO THE PATIENT AND GRAND DAUGHTER @ BEDSIDE. DUE TO PATIENT SPEAKS BAHRAINI. PATIENT VERBALIZED UNDER STANDING. PATIENT VOIDED AND HAD LARGE BM. IV HL D/GRANT. ALL BELONGING GIVEN. STAPLE ON RIGHT HIP REMOVED AND COVERED WITH STERI STRIP. NO S/S OF INFECTION NOTED. NO C/O PAIN OR DISCOMFORT AT THIS TIME. CHARGE NURSE AWARE.
== END 2022-05-25 17:30 | disposition home health service (06) | DRG 560 ==
PROVIDERS: ADMIT Physical Medicine & Rehabilitation Pain Medicine; ATTEND Physical Medicine & Rehabilitation
DX: S72.141D Displaced intertrochanteric fracture of right femur, subsequent encounter for closed fracture with routine healing (principal); D68.59 Other primary thrombophilia; N17.9 Acute kidney failure, unspecified; E44.0 Moderate protein-calorie malnutrition; N39.0 Urinary tract infection, site not specified; W01.0XXD Fall on same level from slipping, tripping and stumbling without subsequent striking against object, subsequent encounter; I10 Essential (primary) hypertension; D50.9 Iron deficiency anemia, unspecified; E66.01 Morbid (severe) obesity due to excess calories; E78.5 Hyperlipidemia, unspecified; H40.9 Unspecified glaucoma; M19.90 Unspecified osteoarthritis, unspecified site; R26.9 Unspecified abnormalities of gait and mobility
CPT/HCPCS: 36415; 73502; 83550; 83735; 84100; 84443; 85025; 97535-GO-CO; A4663; Q0162